=== PATIENT | female | born 1975 | race Caucasian/White ===

== ENCOUNTER 2020-06-01 23:27 | Emergency (ER) | payer OTHER, SELFPAY ==
--- NOTE | ~2020-06-01 | CT_ITS ---
EXAMINATION: CTA chest PE protocol EXAM DATE: 06/02/2020 00:50 INDICATION: Elevated d-dimer, COVID 19 positive. TECHNIQUE: Spiral CTA of the chest (pulmonary arteries) was performed with 100 cc Omnipaque 350 intr avenous contrast injection. Images were acquired during the pulmonary arterial phase. Coronal maxi mum intensity projection 3D-reconstructions were created by the technologist on dedicated workstation . Axial, coronal and sagittal reformatted images were reviewed. The dose-length product (DLP) for t his examination was 157.42 mGy-cm. The exposure was tailored according to patient size (auto mA exp osure control), and iterative reconstruction (ASIR) was used as additional dose reduction technique. There is no prior study for comparison. 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 Pulmonary arteries are well opacified and without intra luminal filling defects. No thoracic aortic dissection. Bilateral patchy peripheral predominant matti undglass opacities, moderate amount on the left and small on the right. Appearance is typical of meredith y stage COVID 19 pneumonia. Less likely acute possibilities include influenza, pulmonary edema or he morrhage. Some chronic processes that can have this appearance include cryptogenic organizing pneumon ia, desquamative interstitial pneumonia, nonspecific interstitial pneumonia, drug toxicity, connectiv e tissue disease. Please clinically correlate and test as appropriate. Biapical opacities which are most likely scarring but if patient is high risk for lung cancer, consid er follow-up chest CT. There is mild to moderate emphysema and hyperinflation. There are no pleural o r pericardial effusions. Tracheobronchial tree is patent. There is no mediastinal, hilar or axill aysha lymphadenopathy. There is no pneumothorax. Heart normal in size. No evidence of coronary ar terial calcification. 0 There is thoracic spondylosis without osteoblastic or osteolytic lesions id entified. IMPRESSION: 1. Upper lobe opacities most likely scarring but if patient has risk factors for lung cancer, consid er follow-up low-dose chest CT without contrast in 3-6 months. 2. Moderate amount of left, small right-sided groundglass opacity suspicious for COVID pneumonia. Pl ease clinically correlate. 3. Mild to moderate emphysema and hyperinflation. 4. No pulmonary emboli. Reviewed, dictated and finalized at location A. NDER CHECKER IMPRESSION: 1. Upper lobe opacities most likely scarring but if patient has risk factors f or lung cancer, consider follow-up low-dose chest CT without contrast in 3-6 mo nths. 2. Moderate amount of left, small right-sided groundglass opacity suspicious f or COVID pneumonia. Please clinically correlate. 3. Mild to moderate emphysema and hyperinflation. 4. No pulmonary emboli.
[2020-06-01 23:30] VITALS: BP 143/88; PULSE 119; RESP 20; TEMP 36.9; O2SAT 97
[2020-06-01 23:40] VITALS: PULSE 119
--- NOTE | 2020-06-01 23:42 | ECG_ITS ---
Measurements Intervals [place] Rate: 102 P: 53 CA: 114 QRS: 45 QRSD: 82 T: 65 QT: 333 QTc: 434 Interpretive Statements SINUS TACHYCARDIA WITH SHORT CA INTERVAL POSSIBLE LEFT ATRIAL ENLARGEMENT INCOMPLETE RIGHT BUNDLE BRANCH BLOCK BORDERLINE ECG Electronically Signed On 06-02-2020 9:10:33 IN FILE OPERATOR by Min Bo D.O.
--- NOTE | 2020-06-01 23:43 | ED.GENADULT ---
HPI - General Adult General Chief complaint: Shortness of Breath/Dyspnea Stated complaint: shortness of breathe Source: patient Mode of arrival: ambulatory Limitations: no limitations History of Present Illness HPI narrative: Mirian is a 45F with a PMH of COPD and a COVID diagnosis 6 days ago that presented to the ER with shortness of breath and pain in her chest and a cough. She had had aches and fevers through the week but became SOB over the last few days. She has a home pulse ox and even dropped below 90 last night but it returned to normal this morning. However, she developed chest pain this evening, worse with inspiration. No syncope, new N/V or worsening SOB with the chest pain. Related Data Allergies Allergy/AdvReac Type Severity Reaction Status Date / Time No Known Allergies Allergy Unverified 08/05/19 14:34 Review of Systems Constitutional: Constitutional: Reports chills, Reports fatigue and Reports fever(s) Eyes: Eyes: Reports no additional eye complaints ENT: Reports system reviewed and no additional complaints, except as documented Cardiovascular: Cardiovascular: Reports as per HPI Respiratory: Respiratory: Reports as per HPI Gastrointestinal: Gastrointestinal: Reports no additional gastrointestinal complaints Genitourinary: Genitourinary: Reports no additional female genitourinary complaints Musculoskeletal: Musculoskeletal: Reports no additional musculoskeletal complaints Integumentary/Breasts: Skin/Breast: Reports system reviewed and no additional complaints, except as docu Neurologic: Reports system reviewed and no additional complaints, except as documented Psychiatric: Psychiatric: Reports no additional psychiatric complaints Endocrine: Endocrine: Reports no additional endocrine complaints Hematologic/Lymphatic: Hematologic/Lymphatic: Reports no additional hematologic/lymphatic complaints Allergic/Immunologic: Allergic/Immunologic: Reports no additional allergic/immunologic complaints [facility] Past Medical History Medical History COPD (chronic obstructive pulmonary disease) Social History Social History Smoking status: Never smoker Exam Const: General: no acute distress and alert Orientation/consciousness: patient oriented x3 Limitations: No altered mental status HENMT: Head: normal to inspection Other: atraumatic Eyes: Conjunctivae: conjunctivae normal Pupils: Equal, round and reactive pupils present Neck: Neck: normal visual inspection Chest: Chest palpation & inspection: normal inspection of the chest Resp: Effort & Inspection: labored, tachypneic and uses accessory muscles Auscultation: clear to auscultation bilaterally Cardio: Rate: tachycardic Rhythm: regular rhythm Heart sounds: no murmurs GI: GI Palp: Yes Soft to palpation, No Tenderness to palpation present (GI) and No Guarding due to palpation present (GI) Skin: General skin exam: normal color Rashes: no rashes Neuro: General: patient oriented x3 and moves all extremities Extrem: General: normal to inspection Psych: Mental Status: mental status grossly normal Course Course Emergency Course: Mirian was evaluated. Ordered labs and ekg. EKG showed sinus tachycardia with a rate of 102, normal axis, No ST elevation/depression, and right ventricular delay. Labs were significant for an elevated D-dimer. Due to this a CTA was done. It showed viral pneumonia but no blood clots. She also threw up after the contrast so she was given zofran. As her HR came down to around 100 and her oxygen saturation was in the high 90's she was discharged home. Vital Signs Vital signs: Vital Signs Temperature 98.5 F 06/01/20 23:30 Pulse Rate 119 H 06/01/20 23:30 Respiratory Rate 20 06/01/20 23:30 Blood Pressure 143/88 H 06/01/20 23:30 Pulse Oximetry 97 06/01/20 23:30 Temperature 98.5 F
[2020-06-01 23:50] VITALS: O2SAT 97
[2020-06-01 23:57] LABS: Basophils Absolute Auto 0.01 K/mm3 (0.00-0.10); Basophils Percent Auto 0.2 % (0.0-1.0); Eosinophils Absolute Auto 0.01 K/mm3 (0.02-0.50); Eosinophils Percent Auto 0.2 % (1.0-6.0); Hematocrit 39.3 % (35.0-49.0); Hemoglobin 13.1 g/dL (12.0-15.0); Immature Granulocyte Absolute 0.02 K/mm3 (0.00-0.00); Immature Granulocyte Percent A 0.3 % (0.0-0.0); Lymphocytes Absolute Auto 1.41 K/mm3 (1.10-4.50); Lymphocytes Percent Auto 22.7 % (18.0-42.0); Mean Corpuscular HGB Conc 33.3 g/dL (32.0-36.0); Mean Corpuscular Hemoglobin 30.7 pg (27.0-31.0); Mean Platelet Volume 10.8 fl (9.2-11.8); Monocytes Absolute Auto 0.66 K/mm3 (0.10-0.90); Monocytes Percent Auto 10.6 % (2.0-11.0); Neutrophils Absolute Auto 4.1 K/mm3 (1.7-7.2); Platelet Count Result 177 K/mm3 (150-420); Red Blood Count 4.27 M/mm3 (4.20-5.40); Red Cell Distribution Width 12.4 % (11.6-14.4); White Blood Count 6.2 K/mm3 (4.8-10.8)
[2020-06-02 00:14] LABS: D Dimer 1.02 mg/L (0.19-0.50)
[2020-06-02 00:15] LABS: Alanine Aminotransferase 23 U/L (14-59); Albumin Level 3.2 g/dL (3.4-5.0); Alkaline Phosphatase 80 U/L (46-116); Anion Gap 10 mmol/L (8-16); Aspartate Amino Transferase 24 U/L (15-37); Bilirubin,Total 0.3 mg/dL (0.00-1.00); Blood Urea Nitrogen 10 mg/dL (7-18); CRP 3.9 mg/dL (0.0-0.9); Calcium 8.4 mg/dL (8.5-10.1); Carbon Dioxide 28 mmol/L (21-32); Chloride 100 mmol/L (98-108); Estimated Glomerular Filt Rate > 60; Glucose 130 mg/dL (70-99); Osmolality Calculated 287 mOsm/kg (285-295); Potassium 3.5 mmol/L (3.5-5.1); Sodium 138 mmol/L (136-145); Total Protein 7.1 g/dL (6.4-8.2); Troponin I 5.8 ng/L (0.00-60.4)
[2020-06-02 00:16] LABS: BNP < 5 pg/mL (0-100)
--- NOTE | 2020-06-02 00:16 | PC.NURSE ---
0015- Received a call from Kriss in the lab and she stated that patient has a high critical D-Dimer of 1.02, I notified Dr. Borja and Jefferson BURNS of these results.
[2020-06-02] MEDS: LORazepam INJ (*CRX) 2 MG/ML VIAL 0.5 MG IV PUSH (00:21)
[2020-06-02] MEDS: SODIUM CHLORIDE 0.9% IV 1,000 ML 999 ML IV CONT (00:22)
--- NOTE | 2020-06-02 00:32 | PC.NURSE ---
pt to xray for CT chest per wheelchair.
--- NOTE | 2020-06-02 00:41 | PC.NURSE ---
pt return from xray, small emesis after contrast. erp aware
[2020-06-02] MEDS: ONDANSETRON INJ 4 MG/2 ML VIAL IV PUSH (00:51)
[2020-06-02 01:14] VITALS: BP 147/87; PULSE 98; RESP 20; TEMP 37.2; O2SAT 98
== END 2020-06-02 01:32 | disposition home or self-care (01) ==
PROVIDERS: Emergency Provider Family Medicine
DX: U07.1 COVID-19 (principal); J12.82 Pneumonia due to coronavirus disease 2019
CPT/HCPCS: 36415; 71275; 80053; 83880; 84484; 85025; 85380; 86140; 93005; 96361; 96374; 96375; 99283; 99284; J2060; J2405; J7030; Q9967